=== PATIENT | female | born 1955 ===

== ENCOUNTER 2022-05-31 18:06 | Emergency (ER) | payer MEDICARE ==
[~2022-05-31] VITALS: Ht 162.6 cm; Wt 100.0 kg
[2022-05-31] MEDS ORDERED: LISI-658 PO (18:12)
[2022-05-31] MEDS ORDERED: METOPROLOL PO (18:12)
[2022-05-31] MEDS ORDERED: LIDOCAINE 5% TRANSDERMAL PATCH TD ONE (19:30)
[2022-05-31] MEDS ORDERED: KETOROLAC TROMETHAMINE 30 MG/ML VIAL IM ONE (19:30)
[2022-05-31] MEDS ORDERED: CYCLOBENZAPRINE HCL 10 MG TABLET PO ONE (19:30)
[2022-05-31 19:36] LABS: EOSINOPHILS % (AUTO) 6.6 % (1.0-6.0); HEMATOCRIT 45.7 % (36-46); HEMOGLOBIN 15.2 g/dL (12.0-16.0); LYMPHOCYTES # (AUTO) 2.1 K/uL (1.0-4.8); LYMPHOCYTES % (AUTO) 28.9 % (22.0-44.0); MEAN CORPUSCULAR HEMOGLOBIN 29.5 pg (26.0-34.0); MEAN CORPUSCULAR HGB CONC 33.3 G/dL (31.0-37.0); MEAN CORPUSCULAR VOLUME 89 fL (80-100); MONOCYTES # (AUTO) 0.6 K/uL (0.1-1.0); MONOCYTES % (AUTO) 7.7 % (2.0-9.0); NEUTROPHILS # (AUTO) 4.1 K/uL (1.8-7.7); NEUTROPHILS % (AUTO) 55.8 % (40.0-70.0); PLATELET COUNT (AUTO) 321 K/uL (150-450); RED BLOOD CELL COUNT(AUTO) 5.15 MIL/uL (4.00-5.20)
[2022-05-31 19:43] LABS: ANION GAP 12 mmol/L (8-16); CALCIUM, TOTAL 9.2 mg/dL (8.8-10.5); CARBON DIOXIDE 29 mmol/L (22-29); CHLORIDE 101 mmol/L (98-107); CREATININE 0.91 mg/dL (0.60-1.30); GLUCOSE,RANDOM 113 mg/dL (70-110); POTASSIUM 3.1 mmol/L (3.5-5.1); SODIUM SERUM 142 mmol/L (136-145); UREA NITROGEN, BLOOD 16 mg/dL (7-18)
[2022-05-31 19:48] LABS: ALANINE AMINOTRANSFERASE 57 U/L (12-78); ALBUMIN 4.1 g/dL (3.4-5.0); ALKALINE PHOSPHATASE 84 U/L (46-116); ASPARTATE AMINOTRANSFERASE 30 U/L (15-37); BILIRUBIN,TOTAL 0.3 mg/dL (0.1-1.0); LIPASE 105 U/L (73-393); TOTAL PROTEIN, SERUM 7.4 g/dL (6.4-8.2)
[2022-05-31 19:54] LABS: GLOMERULAR FILTR. RATE CALC > 60 mL/min (>60)
[2022-05-31 19:54] LABS: APPEARANCE,URINE CLEAR (CLEAR); BILIRUBIN,URINE NEGATIVE (NEGATIVE); GLUCOSE, URINE (UA) NEGATIVE (NEGATIVE); LEUKOCYTE ESTERASE ,URINE NEGATIVE (NEGATIVE); NITRATE,URINE NEGATIVE (NEGATIVE); OCCULT BLOOD,URINE NEGATIVE (NEGATIVE); PROTEIN,URINE NEGATIVE (NEGATIVE); SPECIFIC GRAVITIY, URINE 1.008 (1.003-1.030); UROBILINOGEN,URINE <=1.0 mg/dL (<=1.0)
[2022-05-31 20:04] LABS: BACTERIA,URINE None Seen /HPF (None Seen); RBC,URINE None Seen /HPF (0-2); SQUAMOUS EPITHELIAL CELL,UR Few /LPF (None Seen); WBC,URINE None Seen /HPF (0-5)
[2022-05-31] MEDS ORDERED: IBUP-1492 PO (20:50)
[2022-05-31] MEDS ORDERED: CYCL-448 PO (20:50)
[2022-05-31 21:01] VITALS: BP 149/93
== END 2022-05-31 21:06 | disposition home or self-care (01) ==
LOC: EMS 18:16
DX: R10.9 Unspecified abdominal pain (principal); I10 Essential (primary) hypertension; Z90.49 Acquired absence of other specified parts of digestive tract; Z90.710 Acquired absence of both cervix and uterus; Z90.89 Acquired absence of other organs
CPT/HCPCS: 99284; 74176; 80053; 81001; 83690; 85025; 36415; 96372; J1885